=== PATIENT | male | born 1940 | race Caucasian/White ===

== ENCOUNTER 2016-07-28 13:04 | Day surgery (SDC) | payer OTHER ==
[~2016-07-28 13:04] MED LIST: ALBU0.086 INH; ALBU6.7H INH; ATEN1TAB74 PO; ECOT325T PO; FURO1TAB93 PO; NEBUKIT4 XX; NITR0.4S SL; PREG75 PO; REST30CA PO; SPIR50TA21 PO; VITA250L PO
[2016-07-28] MEDS ORDERED: ASPI81CH37 CHEW (13:30)
[2016-07-28] MEDS ORDERED: DILT-60 PO (13:32)
[2016-07-28] MEDS ORDERED: MAGN500T5 PO (13:33)
[2016-07-28] MEDS ORDERED: FURO1TAB62 PO (13:34)
[2016-07-28] MEDS ORDERED: SPIR50TA PO (13:34)
[2016-07-28] MEDS ORDERED: TEMA30CA PO (13:35)
[2016-07-28] MEDS ORDERED: POTA-163 PO (13:36)
[2016-07-28 13:37] VITALS: BP 118/60; PULSE 74; RESP 20; TEMP 98.8; O2SAT 93
[2016-07-28] MEDS ORDERED: LEVEMIR SQ (13:37)
[2016-07-28] MEDS ORDERED: FERR324T8 PO (13:38)
[2016-07-28] MEDS ORDERED: NITR1SUB3 SL (13:39)
[2016-07-28] MEDS ORDERED: ALBU6.7H INH (13:41)
[2016-07-28] MEDS ORDERED: ALBU0.08 NEB (13:42)
--- NOTE | 2016-07-30 09:11 | RADRPT ---
EXAM DATE/TIME: 07/28/2016 13:33 [facility] COMPARISON : No previous studies available for comparison. INDICATIONS : Suspected hepatocellular carcinoma OBJECTIVE: Temperature: 98.8 Heart Rate: 75 Blood Pressure: 118/72 Respiratory: 22 Oximetry: 95 PNEUMONIA VACCINE: HISTORY OF PRESENT ILLNESS: Johan is a pleasant 76-year-old male with history of cirrhosis likely secondary to remote EtOH abuse noted to have a solitary enlarging 2.6 x 2.4 cm mass in anterior segment 8 of the liver, LIRADS 4. In itial and available AFP is not sufficiently elevated. However, family remarks that there may be a ne w AFP level drawn which may be in fact elevated. Unfortunately, this is not available at this time. R ecent LFTs are also not available although more remote labs are within normal limits. 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 Patient is fairly functional and ambulates from a walker primarily due to the recent hip surgery, ECOG 1. He is currently without complaints. PAST MEDICAL HISTORY : 1. Hypercholesterolemia. Hypertension. 3. hepatic cirrosis 4. copd 5. Diabetes mellitus type 2. Cerebrovascular disease. 7. chf PAST SURGICAL HISTORY : 1. Carotid stent. 2. Cholecystectomy. 3. rt hip replacement 4. bilateral cataract surgery SOCIAL HISTORY : No alcohol use. Tobacco; Patient has a ALLERGIES: 1. NKDA MEDICATIONS: [id number] mg q.d. diltiazem 120 mg q.d. magnesium 500 mg q.d. lasix 20 mg b.i.d. spironolatone 50 mg b.i.d. temazepam 30 mg q.h.s. potassium 20 units q.d. levemir 15 units q.h.s. ferrous sulfate 325 mg q.d. albuterol inhaler prn PHYSICAL EXAMINATION: CV: Regular rate and rhythm. Lungs: Clear to auscultation. Abdomen: Soft, nontender nondistended. IMAGING STUDIES: CT examination dated 05/01/2016 and PET/CT examination dated 06/25/2016 were reviewed. These demonstrat e cirrhotic liver with evidence for portal hypertension and is enlarging 2.6 x 2.4 cm segment 8 mass demonstrating early arterial enhancement, early washout, and faint capsule. No evidence for significa nt PET activity or portal vein invasion. No evidence for extrahepatic metastatic disease. ASSESSMENT: 76-year-old male with EtOH cirrhosis and 2.6 x 2.4 cm segment 8 LIRADS 4 mass. 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 He is not a resection candidate due to portal hypertension. Therefore, recommend combination embolization and ablation with curative intent. Ablation will be challenging due to locat ion of the mass but likely possible with advanced techniques. PLAN: VANESA embolization utilizing Ethiodol or ISA beads to also improve targeting of the lesion for subsequ ent technically challenging ablation. TIME SPENT: 30 minutes Patrick Lomeli MD on July 28, 2016 at 17:13 Board Certified Radiologist. This report was verified electronically.
== END 2016-07-28 15:15 | disposition home or self-care (01) ==
LOC: HROP 13:04 → HRIP 13:09 → HROP 15:15
PROVIDERS: ATTEND Internal Medicine Hematology & Oncology
DX: R16.0 Hepatomegaly, not elsewhere classified (principal); K70.30 Alcoholic cirrhosis of liver without ascites; K76.6 Portal hypertension; I11.0 Hypertensive heart disease with heart failure; I50.9 Heart failure, unspecified; E11.9 Type 2 diabetes mellitus without complications; E78.00 Pure hypercholesterolemia, unspecified; J44.9 Chronic obstructive pulmonary disease, unspecified; Z79.4 Long term (current) use of insulin; Z96.641 Presence of right artificial hip joint; Z79.82 Long term (current) use of aspirin; Z95.820 Peripheral vascular angioplasty status with implants and grafts
CPT/HCPCS: 99211; G0463

== ENCOUNTER 2016-07-31 07:10 | Observation (INO) | payer OTHER ==
[~2016-07-31] VITALS: Ht 177.8 cm; Wt 85.5 kg
[2016-07-31] VITALS (10 sets, daily range): BP systolic 102–134; BP diastolic 48–76; PULSE 51–70; RESP 16–22; TEMP 96.8–98.2; O2SAT 92–96
[~2016-07-31 07:10] MED LIST changes: +ALBU0.08 NEB; -ALBU0.086 INH; +ASPI81CH37 CHEW; -ATEN1TAB74 PO; +DILT-60 PO; -ECOT325T PO; +FERR324T8 PO; +FURO1TAB62 PO; -FURO1TAB93 PO; +LEVEMIR SQ; +MAGN500T5 PO; -NEBUKIT4 XX; -NITR0.4S SL; +NITR1SUB3 SL; +POTA-163 PO; -PREG75 PO; -REST30CA PO; +SPIR50TA PO; -SPIR50TA21 PO; +TEMA30CA PO; -VITA250L PO
[2016-07-31] MEDS ORDERED: SODIUM CHLOR 0.9% 1000 ML INJ 1,000 ML IV ONE (08:00)
[2016-07-31 08:22] LABS: AUTOMATED NEUTROPHIL # 5.3 TH/MM3 (1.8-7.7); BASOPHIL # 0.1 TH/MM3 (0-0.2); BASOPHIL % 1.4 % (0.0-2.0); EOSINOPHIL # 0.3 TH/MM3 (0-0.4); EOSINOPHIL % 4.2 % (0.0-4.0); HEMATOCRIT 40.2 % (39.0-51.0); HEMO FLAGS DIFF FINAL; LYMPH % 16.2 % (9.0-44.0); LYMPHOCYTE # 1.3 TH/MM3 (1.0-4.8); MEAN CELL VOLUME 91.9 FL (80.0-100.0); MEAN CORPUSCULAR HEMOGLOBIN 31.4 PG (27.0-34.0); MEAN CORPUSCULAR HGB CONC 34.1 % (32.0-36.0); MONO % 9.6 % (0.0-8.0); NEUT % 68.6 % (16.0-70.0); PLATELET COUNT 101 TH/MM3 (150-450); RED BLOOD COUNT 4.38 MIL/MM3 (4.50-5.90); RED CELL DISTRIBUTION WIDTH 15.1 % (11.6-17.2); WHITE BLOOD COUNT 7.7 TH/MM3 (4.0-11.0)
[2016-07-31 08:32] LABS: APTT (PATIENT) 29.2 SEC (24.3-30.1); INTERNATIONAL NORMALIZED RATIO 1.2 RATIO; PROTHROMBIN TIME - PATIENT 13.5 SEC (9.8-11.6)
[2016-07-31 08:36] LABS: BICARBONATE 25.9 MEQ/L (21.0-32.0); POTASSIUM 4.6 MEQ/L (3.5-5.1)
[2016-07-31 08:38] LABS: INDIRECT BILIRUBIN 1.4 MG/DL (0.0-0.8)
[2016-07-31] MEDS ORDERED: fentaNYL CITRATE 250 MCG/5 ML AMP ONE (13:13)
[2016-07-31] MEDS ORDERED: MIDAZOLAM HCL 5 MG/5 ML VIAL ONE (13:13)
[2016-07-31] MEDS ORDERED: NITROGLYCERIN 1000 MCG/5 ML VIAL OTHER ONE (13:23)
[2016-07-31] MEDS ORDERED: VERAPAMIL HCL 5 MG/2 ML VIAL ONE (13:23)
[2016-07-31] MEDS ORDERED: ETHIODIZED OIL (48% IODINE) 4800 MG/10 ML AMP ONE (14:33)
[2016-07-31] MEDS ORDERED: HEPARIN SODIUM - IV 10,000 UNITS/10 ML VIAL ONE (14:55)
[2016-07-31] MEDS ORDERED: DOXOrubicin HCL 10 MG/5 ML INJ OTHER ONE (15:00)
[2016-07-31] MEDS ORDERED: ONDANSETRON HCL 4 MG/2 ML VIAL IV PRN (15:15)
[2016-07-31] MEDS ORDERED: HYDROmorphone HCL PF 1 MG/ML VIAL IV PUSH PRN (15:15)
--- NOTE | 2016-07-31 15:15 | PD.RAD ---
Post Procedure Progress Note Pre Procedure Diagnosis: (1) HCC (hepatocellular carcinoma) Post Procedure Diagnosis: (1) HCC (hepatocellular carcinoma) Procedure Date: Jul 31, 2016 Supervising Radiologist: Patrick Lomeli Anesthesia: Conscious Sedation Plan of Activity Patient to Unit: Nursing Unit Patient Condition: Good Additional Comments: Lipiodol and VANESA tace super selective embolization of right hepatic mass. Excellent uptake by tumor with patent flow in remaining branches. See PACS Report for procedural detail/treatment Patrick Lomeli MD Jul 31, 2016 15:15
[2016-07-31] MEDS ORDERED: IOHEXOL 350 MG/ML 50 ML BTL (for RAD DIAG) ONE (15:24)
--- NOTE | 2016-07-31 16:29 | HHI.HP ---
[facility] Service [facility] Primary Care Physician Reed Sim M.D. Admission Diagnosis Diagnoses: Chief Complaint: Right liver mass Travel History International Travel<30 Days: No Contact w/Intl Traveler <30 Da: No Traveled to Known Affected Are: No History of Present Illness Patient is a 76-year-old male with known history of cirrhosis likely secondary to alcohol abuse who was noted to have on right hepatic mass enlarging.. Patient with history of hyperlipidemia, hypertension, diabetes type 2. Was admitted under radiology outpatient and underwent superselective embolization of the right hepatic mass. Patient currently is very comfortable denies any pain. Patient admitted for overnight observation. Review of Systems Constitutional: DENIES: Diaphoretic episodes, Fatigue, Fever, Weight gain, Weight loss, Chills, Dizziness, Change in appetite, Night Sweats Endocrine: DENIES: Heat/cold intolerance, Polydipsia, Polyuria, Polyphagia Eyes: DENIES: Blurred vision, Diplopia, Eye inflammation, Eye pain, Vision loss , Photosensitivity, Double Vision Ears, nose, mouth, throat: DENIES: Tinnitus, Hearing loss, Vertigo, Nasal discharge, Oral lesions, Throat pain, Hoarseness, Ear Pain, Running Nose, Epistaxis, Sinus Pain, Toothache, Odynophagia Respiratory: DENIES: Apneas, Cough, Snoring, Wheezing, Hemoptysis, Sputum production, Shortness of breath Cardiovascular: DENIES: Chest pain, Palpitations, Syncope, Dyspnea on Exertion , PND, Lower Extremity Edema, Orthopnea, Claudication Gastrointestinal: DENIES: Abdominal pain, Black stools, Bloody stools, Constipation, Diarrhea, Nausea, Vomiting, Difficulty Swallowing, Anorexia Genitourinary: DENIES: Sexual dysfunction, Urinary frequency, Urinary incontinence, Urgency, Hematuria, Dysuria, Nocturia, Penile Discharge, Testicular Pain, Testicular Swelling Musculoskeletal: COMPLAINS OF: Joint pain, DENIES: Muscle aches, Stiffness, Joint Swelling, Back pain, Neck pain Integumentary: DENIES: Abnormal pigmentation, Nail changes, Pruritus, Rash Hematologic/lymphatic: DENIES: Bruising, Lymphadenopathy Immunologic/allergic: DENIES: Eczema, Urticaria Neurologic: DENIES: Abnormal gait, Headache, Localized weakness, Paresthesias, Seizures, Speech Problems, Tremor, Poor Balance Psychiatric: DENIES: Anxiety, Confusion, Mood changes, Depression, Hallucinations, Agitation, Suicidal Ideation, Homicidal Ideation, Delusions Past Family Social History Past Medical History Hypertension Hypercholesterolemia Liver cirrhosis COPD Diabetes type 2 insulin-requiring History of CAD status post [place] Past Surgical History Right hip surgery Brain tumor surgery Cholecystectomy Carotid stent placement Bilateral cataract surgery Reported Medications Aspirin Diltiazem 120 mg daily Magnesium 500 mg daily Lasix 20 mg twice a day Spironolactone 50 mg twice a Temazepam 30 mg at bedtime Potassium 20 g daily D June 15 units at bedtime Ferrous sulfate 325 mg daily Albuterol inhaler when necessary Allergies: Coded Allergies: Codeine (Unverified Allergy, Severe, THROAT SWELLS, 07/31/16) Family History Noncontributory Social History History of alcohol use quit many years ago Still smokes 5-6 takes a trying to quit Physical Exam Vital Signs Vital Signs Date Time Temp Pulse Resp B/P Pulse Ox O2 Delivery O2 Flow Rate FiO2 07/31/16 08:14 Room Air 07/31/16 07:38 98.2 70 20 127/76 93 Physical Exam GENERAL: This is a well-nourished, well-developed patient, in no apparent distress. SKIN: No rashes, ecchymoses or lesions. Cool and dry. HEAD: Atraumatic. Normocephalic. EYES: Pupils equal round and reactive. Extraocular motions intact. No scleral icterus. No injection or drainage. ENT: Nose without bleeding, Throat without erythema, tonsillar hypertrophy or exudate. Uvula midline. Airway patent. NECK: Trachea midline. No JVD or lymphadenopathy. Supple, nontender, no meningeal signs. CARDIOVASCULAR: Regular rate and rhythm, soft over 6 systolic systolic murmur left sternal border RESPIRATORY: Clear to auscultation. Breath sounds equal bilaterally. No wheezes , rales, or rhonchi. GASTROINTESTINAL: Abdomen soft, non-tender, nondistended. No guarding. MUSCULOSKELETAL: Extremities without clubbing, cyanosis, or edema. No joint tenderness, effusion, or edema noted. No calf tenderness. Negative Homans sign bilaterally. Left wrist with a TR band in place NEUROLOGICAL: Awake and alert. Cranial nerves II through XII intact. Motor and sensory grossly within normal limits. Five out of 5 muscle strength in all muscle groups. Normal speech. Laboratory Laboratory Tests Test 07/31/16 07:55 White Blood Count 7.7 Red Blood Count 4.38 Hemoglobin 13.7 Hematocrit 40.2 Mean Corpuscular Volume 91.9 Mean Corpuscular Hemoglobin 31.4 Mean Corpuscular Hemoglobin 34.1 Concent Red Cell Distribution Width 15.1 Platelet Count 101 Mean Platelet Volume 8.9 Neutrophils (%) (Auto) 68.6 Lymphocytes (%) (Auto) 16.2 Monocytes (%) (Auto) 9.6 Eosinophils (%) (Auto) 4.2 Basophils (%) (Auto) 1.4 Neutrophils # (Auto) 5.3 Lymphocytes # (Auto) 1.3 Monocytes # (Auto) 0.7 Eosinophils # (Auto) 0.3 Basophils # (Auto) 0.1 CBC Comment DIFF FINAL Differential Comment Prothrombin Time 13.5 Prothromb Time International 1.2 Ratio Activated Partial 29.2 Thromboplast Time Sodium Level 136 Potassium Level 4.6 Chloride Level 103 Carbon Dioxide Level 25.9 Anion Gap 7 Blood Urea Nitrogen 30 Creatinine 0.99 Estimat Glomerular Filtration 73 Rate Random Glucose 102 Calcium Level 8.9 Total Bilirubin 2.0 Direct Bilirubin 0.6 Indirect Bilirubin 1.4 Aspartate Amino Transf 55 (AST/SGOT) Alanine Aminotransferase 48 (ALT/SGPT) Alkaline Phosphatase 111 Total Protein 7.6 Albumin 3.1 Result Diagram: 07/31/16 0755 07/31/16 0755 Assessment and Plan Assessment and Plan 76-year-old male with liver mass status post chemoembolization of the right hepatic mass with implantation of chemotherapy peaks. Monitor Clear liquids until midnight. Zofran when necessary for nausea History of hypertension, CAD status post [place], history of diabetes type 2 insulin- requiring Stable. Continue home meds. Discharge planning in a.m. Discussed Condition With Patient Lakesha Antonio MD Jul 31, 2016 16:29
[2016-07-31] MEDS ORDERED: TEMAZEPAM 15 MG CAP PO PRN (16:30)
[2016-07-31] MEDS ORDERED: ALBUTEROL SULFATE 90 MCG/ACT HFA 18 GM INHALER INH PRN (16:30)
[2016-07-31] MEDS ORDERED: NITROGLYCERIN 0.4 MG SL 25 TABS/BTL SL PRN (16:30)
[2016-07-31] MEDS: SPIRONOLACTONE 50 MG TAB PO SCH (18:00)
[2016-07-31] MEDS ORDERED: INSULIN DETEMIR 100 UNITS/ML VIAL SQ SCH (21:00)
[2016-07-31] MEDS: FUROSEMIDE 20 MG TAB PO SCH (21:36)
[2016-07-31] MEDS: SODIUM CHLOR 0.9% 1000 ML INJ 1,000 ML IV SCH (21:36)
[2016-07-31] MEDS: RESP: ALBUTEROL 2.5 MG/3 ML NEB (SCH) NEB (23:36)
[2016-08-01] VITALS: BP 106/58; PULSE 65; RESP 16; TEMP 97; O2SAT 95
[2016-08-01] MEDS: SODIUM CHLOR 0.9% 1000 ML INJ 1,000 ML IV SCH ×2 (01:02→11:15)
[2016-08-01 04:00] VITALS: BP 115/60; PULSE 73; RESP 16; TEMP 97.6; O2SAT 95
[2016-08-01] MEDS: RESP: ALBUTEROL 2.5 MG/3 ML NEB (SCH) NEB ×3 (04:49→12:14)
--- NOTE | 2016-08-01 07:39 | RADRPT ---
EXAM DATE/TIME: 07/31/2016 13:18 [facility] COMPARISON: US GUIDED VASCULAR ACCESS, LEFT, July 31, 2016, 15:22. INDICATIONS : 76-year-old male with history of EtOH cirrhosis and enlarging LI-RADS 4 mass in segment 4A of the juan miguel er. AFP > 500. ECOG 1. BCLC A. Na-MELD 14. MEDICAL HISTORY : 1. Hepatic cirrhosis 2. DM 3. stroke 4. CHF 5. basal cell carcinoma 6. sleep apnea, CPAP at night SURGICAL HISTORY : 1. Cholecystectomy 2. Right hip replacement 3. Coromnary stent 4. Basal cell carcinoma resection ENCOUNTER: Initial ACUITY: 1 month PAIN SCORE: 0/10 LOCATION: N/A FLUORO TIME: 12.1 minutes IMAGE SERIES: 10 ACCESS SITE: Left Radial artery SEDATION TIME: 75 minutes CONTRAST: 1.) 55 cc Omnipaque (iohexol) 350 MEDICATION(S): 1.) 3 mg midazolam (Versed) IV 2.) 150 mcg fentanyl (Sublimaze) IV 3.) 3,000 units Heparin IV 4.) 400 mcg Nitroglycerin IV 5.) 4 mg Verapamil IV PROCEDURE : 1. Ultrasound-guided puncture of the access site. 2. Conscious sedation with continuous EKG and oximetry monitoring. 3. Selective catheter placement in the common hepatic artery with selective angiography 4. Selective catheter placement in the right hepatic artery with selective angiography 5. Subselective catheter placement and segment 4 branch of the right hepatic artery with subselectiv e angiography 6. superselective embolization of distal segments 4 hepatic artery with Lipiodol and 100 um Adriamyci n Oncozene beads The risks, benefits and alternatives to the procedure were explained and verbal and written consent w as obtained. The site was prepped in sterile fashion. Full sterile technique was used, including ca p, mask, sterile gloves and gown and a large sterile sheet. Hand hygiene and 2% chlorhexidine and/or betadine/alcohol prep was utilized per protocol for cutaneous antisepsis. The skin and subcutaneous tissues were infiltrated with local anesthetic solution. Patient passed Barbeau test prior to the procedure. Ultrasound evaluation of the left radial artery d emonstrated the artery to be patent. Single image was obtained and placed in PACS archive. Micropunct ure needle was advanced into the left radial artery under careful ultrasound guidance. This was subse quently exchanged for a slim 6 Thai sheaths. A 4 Thai Sam type catheter was then advanced i nto the celiac artery and subsequently secured in the common hepatic artery. Angiography was performe d demonstrating standard celiac anatomy with faintly enhancing mass near the dome of the liver. Francoise ter was therefore advanced into the right hepatic artery and angiography was performed. This confirme d enhancing mass near the medial dome of the liver corresponding to the segment 4A mass noted on CT. A renegade high flow microcatheter and Fathom 14 wire were then advanced into the segment 4 branch an d angiography was performed. This confirmed the findings. Mass was subsequently embolized with one mL of lipiodol (to allow for ablation targeting) and approximately 1/3 of 10 mL solution containing 2 m L 100um Oncozene loaded with 75 ml Adriamycin. Followup angiography demonstrated stasis of flow in th e embolized branch only with persistent fourth flow noted in the remaining segments. Margin catheters were then removed. Left radial artery sheath was then removed and hemostasis obtained with a radial compression device. Conscious sedation was performed with the prescribed dosages and duration as above in the presence of an independent trained radiology nurse to assist in the monitoring of the patient. EKG and oximetry remained stable throughout the procedure. CONCLUSION: 1. Hepatic angiography confirms enhancing mass in the dome of the liver corresponding to segment 4A m ass noted on CT. 2. Technically successful superselective embolization utilizing lipiodol (for ablation targeting) and 100 m Oncozene beads containing 75 mg of Adriamycin. Patrick Lomeli MD on August 01, 2016 at 7:21 Board Certified Radiologist. This report was verified electronically.
[2016-08-01 07:44] VITALS: O2SAT 94
[2016-08-01 08:00] VITALS: BP 120/58; PULSE 80; RESP 18; TEMP 98; O2SAT 95
[2016-08-01] MEDS ORDERED: DILTIAZEM-CD 180 MG CAP ER PO SCH (09:00)
[2016-08-01] MEDS ORDERED: FERROUS FUMARATE 325 MG TAB (106 MG ELEMENTAL IRON) PO SCH (09:00)
[2016-08-01] MEDS ORDERED: POTASSIUM CHLORIDE 20 MEQ CONTROLLED RELEASE TAB PO SCH (09:00)
[2016-08-01] MEDS ORDERED: NON-FORMULARY DRUG (Magnesium Gluconate 500 MG) PO SCH (09:00)
[2016-08-01] MEDS: SPIRONOLACTONE 50 MG TAB PO SCH (09:44)
[2016-08-01] MEDS: FUROSEMIDE 20 MG TAB PO SCH (09:44)
--- NOTE | 2016-08-01 11:06 | HHI.PR ---
Subjective Remarks no complains Objective Vitals Vital Signs Date Time Temp Pulse Resp B/P Pulse Ox O2 Delivery O2 Flow Rate FiO2 08/01/16 08:00 98.0 80 18 120/58 95 08/01/16 07:44 94 Nasal Cannula 2.00 08/01/16 04:00 97.6 73 16 115/60 95 08/01/16 00:00 97.0 65 16 106/58 95 07/31/16 23:36 Nasal Cannula 2.00 07/31/16 23:00 Room Air 07/31/16 20:00 97.1 69 16 121/59 95 07/31/16 18:20 96.8 64 18 134/61 96 07/31/16 17:30 64 20 127/60 93 07/31/16 17:00 60 18 102/48 92 07/31/16 16:30 60 22 130/64 94 07/31/16 16:00 61 20 122/63 94 07/31/16 15:45 65 18 115/55 94 07/31/16 15:30 51 18 112/52 92 07/31/16 15:15 97.6 58 22 119/52 92 I/O 07/31/16 07/31/16 07/31/16 08/01/16 08/01/16 08/01/16 07:00 15:00 23:00 07:00 15:00 23:00 Output Total 300 ml 500 ml 525 ml Balance -300 ml -500 ml -525 ml Output Urine Total 300 ml 500 ml 525 ml Result Diagram: 07/31/16 0755 07/31/16 0755 Imaging Last Impressions Embolization, Transcatheter 07/31/16 1523 Signed Impressions: Service Date/Time: July 13:18 - CONCLUSION: 1. Hepatic angiography confirms enhancing mass in the dome of the liver corresponding to segment 4A mass noted on CT. 2. Technically successful superselective embolization utilizing lipiodol (for ablation targeting) and 100 m Oncozene beads containing 75 mg of Adriamycin. Patrick Lomeli MD Objective Remarks NAD anicteric lungs clear regular rhtyhm abdomen soft, nontender left wrist- no heamtoma extrmeities no edema neuro exam- normal Procedures embolization of mass A/P Assessment and Plan 76-year-old male with liver mass status post chemoembolization of the right hepatic mass with implantation of chemotherapy beads - stable overnight History of hypertension, CAD status post [place], history of diabetes type 2 insulin- requiring Stable. Continue home meds. dc today OP ff up with IR next week Diet regular activity weight bearing as tolerated Meds- continue home meds Lakesha Antonio MD Aug 01, 2016 11:06
--- NOTE | 2016-08-01 12:31 | HHI.PR ---
Subjective Remarks No complaints Objective Vital Signs Date Time Temp Pulse Resp B/P Pulse Ox O2 Delivery O2 Flow Rate FiO2 08/01/16 08:00 98.0 80 18 120/58 95 08/01/16 07:44 94 Nasal Cannula 2.00 08/01/16 04:00 97.6 73 16 115/60 95 08/01/16 00:00 97.0 65 16 106/58 95 07/31/16 23:36 Nasal Cannula 2.00 07/31/16 23:00 Room Air 07/31/16 20:00 97.1 69 16 121/59 95 07/31/16 18:20 96.8 64 18 134/61 96 07/31/16 17:30 64 20 127/60 93 07/31/16 17:00 60 18 102/48 92 07/31/16 16:30 60 22 130/64 94 07/31/16 16:00 61 20 122/63 94 07/31/16 15:45 65 18 115/55 94 07/31/16 15:30 51 18 112/52 92 07/31/16 15:15 97.6 58 22 119/52 92 I/O 07/31/16 07/31/16 07/31/16 08/01/16 08/01/16 08/01/16 07:00 15:00 23:00 07:00 15:00 23:00 Output Total 300 ml 500 ml 525 ml Balance -300 ml -500 ml -525 ml Output Urine Total 300 ml 500 ml 525 ml Result Diagram: 07/31/16 0755 07/31/16 0755 Objective Remarks In NAD. Abdomen soft, NTND. Left radial site intact and dry. Assessment and Plan Problem List: (1) HCC (hepatocellular carcinoma) Status: Acute Plan: POD #! s/p superselective VANESA TACE embolization of segment IV right hepatic artery. Doing very well and without complaints. OK to D/C from IR standpoint. F/U next week with tentative plan for ablation to follow. Patrick Lomeli MD Aug 01, 2016 12:31
== END 2016-08-01 14:55 | disposition home or self-care (01) ==
LOC: HROP 07:10 → HRIP 07:11 → HOCB 08:15 → HROP 18:16
PROVIDERS: ADMIT Internal Medicine Hematology & Oncology; ATTEND Internal Medicine Hematology & Oncology
DX: C22.0 Liver cell carcinoma (principal); K74.60 Unspecified cirrhosis of liver; I11.0 Hypertensive heart disease with heart failure; I50.9 Heart failure, unspecified; I25.10 Atherosclerotic heart disease of native coronary artery without angina pectoris; E11.9 Type 2 diabetes mellitus without complications; E78.5 Hyperlipidemia, unspecified; J44.9 Chronic obstructive pulmonary disease, unspecified; I25.2 Old myocardial infarction; F17.200 Nicotine dependence, unspecified, uncomplicated; Z95.5 Presence of coronary angioplasty implant and graft; Z79.82 Long term (current) use of aspirin; Z88.5 Allergy status to narcotic agent; Z79.4 Long term (current) use of insulin; Z85.828 Personal history of other malignant neoplasm of skin; Z86.73 Personal history of transient ischemic attack (TIA), and cerebral infarction without residual deficits; Z96.641 Presence of right artificial hip joint
CPT/HCPCS: 36247; 37243; 76937; 80048; 80076; 82948; 85025; 85610; 85730; 94640; 94664; 96420; 99152; 99153; C1769; C1884; C1887; G0378; J1644; J2250; J3010; J7030; J7613; J9000; Q9967

== ENCOUNTER 2016-08-07 13:47 | Day surgery (SDC) | payer OTHER ==
[2016-08-07 14:10] VITALS: BP 116/63; PULSE 76; RESP 18; TEMP 98.8; O2SAT 94
--- NOTE | 2016-08-07 15:01 | RADRPT ---
EXAM DATE/TIME: 08/07/2016 00:00 [facility] COMPARISON : INDICATIONS : F/U hepatic chemo embolization OBJECTIVE: Temperature: 98.8 Heart Rate: 76 Blood Pressure: 116/63 Respiratory: 18 Oximetry: 94 PNEUMONIA VACCINE: NO HISTORY OF PRESENT ILLNESS: Johan is a very pleasant 76-year-old male with history of 2.6 cm segment 4A mass (BCLC A, MELD 14, EC OG 1) status post superselective chemoembolization last week. He had a very unremarkable course follo wing chemoembolization and was essentially asymptomatic during hospital admission. He reports minimal right upper quadrant pain immediately following discharge which has since resolved. He is currently without complaints. PAST MEDICAL HISTORY : 1. Stroke. 2. Myocardial infarction. 3. Hypercholesterolemia. 4. Hypertension. 5. Sleep apnea. 6. Chronic obstructive pulmonary disease. 7. Osteoarthritis. 8. Diabetes mellitus type 2. PAST SURGICAL HISTORY : 1. Coronary artery stent. x2 2. Cholecystectomy. SOCIAL HISTORY : ALLERGIES: 1. codeine PHYSICAL EXAMINATION: Left radial access site is unremarkable. Abdomen is soft and nontender. PULSES: Left Radial: 2+ ASSESSMENT: 76-year-old male with 2.6 cm segment 4A hepatocellular carcinoma status post VANESA chemoembolization. Mariano weber has tolerated locoregional therapy very well. Plan remains for curative intent thermal ablation in the next 2 weeks. We will reevaluate liver enzymes in approximately one week prior to proceeding with ablation. PLAN: Microwave ablation in approximately 2 weeks. TIME SPENT: 20 minutes. Patrick Lomeli MD on August 07, 2016 at 14:48 Board Certified Radiologist. This report was verified electronically.
== END 2016-08-07 15:08 | disposition home or self-care (01) ==
LOC: HROP 13:47 → HRIP 13:51 → HROP 15:08
PROVIDERS: ATTEND Radiology Diagnostic Radiology
DX: C22.0 Liver cell carcinoma (principal); E78.00 Pure hypercholesterolemia, unspecified; I10 Essential (primary) hypertension; J44.9 Chronic obstructive pulmonary disease, unspecified; E11.9 Type 2 diabetes mellitus without complications; G47.30 Sleep apnea, unspecified; I25.2 Old myocardial infarction; Z86.73 Personal history of transient ischemic attack (TIA), and cerebral infarction without residual deficits

== ENCOUNTER 2016-08-26 06:47 | Observation (INO) | payer OTHER ==
[~2016-08-26] VITALS: Ht 177.8 cm; Wt 86.0 kg
[2016-08-26 07:05] VITALS: BP 140/68; PULSE 64; RESP 20; TEMP 98.1; O2SAT 92
[2016-08-26] MEDS ORDERED: INSULIN HUMAN REGULAR 1,000 UNITS/10 ML VIAL SQ PRN (07:15)
[2016-08-26] MEDS ORDERED: ceFAZolin 2 GM PREMIX 50 ML IV SCH (07:15)
[2016-08-26] MEDS ORDERED: LACTATED RINGER'S 1000 ML IV PRN (07:15)
[2016-08-26] MEDS: SODIUM CHLOR 0.9% 1000 ML INJ 1,000 ML IV SCH (07:15)
[2016-08-26] MEDS ORDERED: POVIDONE IODINE 5% (ANTISEPSIS KIT) 4 APPLICATIONS EACH NARE PRN (07:15)
[2016-08-26] MEDS ORDERED: SODIUM CHLORID 0.9% 500 ML IV PRN (07:15)
[2016-08-26] MEDS ORDERED: CHLORHEXIDINE GLUCONATE 2 % 1 PACK (2 CLOTHS) TOPICAL PRN (07:15)
[2016-08-26] MEDS ORDERED: METOPROLOL TARTRATE 25 MG TAB PO PRN (07:15)
[2016-08-26] MEDS ORDERED: VENL37.54 PO (07:27)
[2016-08-26 07:38] LABS: AUTOMATED NEUTROPHIL # 4.9 TH/MM3 (1.8-7.7); BASOPHIL # 0.1 TH/MM3 (0-0.2); BASOPHIL % 1.5 % (0.0-2.0); EOSINOPHIL # 0.5 TH/MM3 (0-0.4); EOSINOPHIL % 6.9 % (0.0-4.0); HEMATOCRIT 41.2 % (39.0-51.0); HEMO FLAGS DIFF FINAL; LYMPH % 18.5 % (9.0-44.0); LYMPHOCYTE # 1.4 TH/MM3 (1.0-4.8); MEAN CELL VOLUME 92.1 FL (80.0-100.0); MEAN CORPUSCULAR HEMOGLOBIN 31.8 PG (27.0-34.0); MEAN CORPUSCULAR HGB CONC 34.5 % (32.0-36.0); MONO % 10.2 % (0.0-8.0); NEUT % 62.9 % (16.0-70.0); PLATELET COUNT 117 TH/MM3 (150-450); RED BLOOD COUNT 4.47 MIL/MM3 (4.50-5.90); RED CELL DISTRIBUTION WIDTH 15.6 % (11.6-17.2); WHITE BLOOD COUNT 7.8 TH/MM3 (4.0-11.0)
[2016-08-26 07:47] LABS: APTT (PATIENT) 30.6 SEC (24.3-30.1); INTERNATIONAL NORMALIZED RATIO 1.3 RATIO
[2016-08-26 08:36] LABS: INDIRECT BILIRUBIN 1.4 MG/DL (0.0-0.8); TOTAL BILIRUBIN ADULT 2.1 MG/DL (0.2-1.0)
--- NOTE | 2016-08-26 09:58 | EKG ---
Date Performed: 08/26/2016 Time Performed: 07:15:13 PTAGE: 76 years EKG: Normal Sinus rhythm PREVIOUS TRACING : 07/10/2013 00.59 No change from the prior tracing. DOCTOR: Malcolm Rowe Interpretating Date/Time 08/26/2016 09:52:16
[2016-08-26] MEDS ORDERED: LIDOCAINE 1%/EPINEPHrine 1:100,000 SOLN 20 ML VIAL ONE (10:54)
[2016-08-26] MEDS ORDERED: fentaNYL CITRATE 250 MCG/5 ML AMP ONE (12:35)
[2016-08-26] MEDS ORDERED: SUGAMMADEX SODIUM 200 MG/2 ML VIAL IV PUSH ONE ×2 (12:36)
--- NOTE | 2016-08-26 12:58 | PD.RAD ---
Post CT Procedure Prog Note Pre Procedure Diagnosis: (1) HCC (hepatocellular carcinoma) Post Procedure Diagnosis: (1) HCC (hepatocellular carcinoma) Procedure Date: Aug 26, 2016 Supervising Radiologist: Patrick Lomeli Anesthesia: Analgesia Plan of Activity Patient to Unit: ROPU Patient Condition: Good Additional Comments: good result following microwave ablation. good zone. no hematoma. See PACS Report for procedural detail/treatment Patrick Lomeli MD Aug 26, 2016 12:58
[2016-08-26] MEDS ORDERED: HYDROmorphone HCL PF 1 MG/ML VIAL IV PUSH PRN (13:00)
[2016-08-26 14:00] VITALS: BP 140/66; PULSE 65; RESP 17; TEMP 96; O2SAT 95
--- NOTE | 2016-08-26 15:01 | HHI.HP ---
[facility] [place] [facility] Primary Care Physician Reed Sim M.D. Admission Diagnosis Diagnoses: (1) HCC (hepatocellular carcinoma) Diagnosis: Principal Chief Complaint: Observation post procedure microwave ablation of tumor Travel History International Travel<30 Days: No Contact w/Intl Traveler <30 Da: No Traveled to Known Affected Are: No History of Present Illness Patient is a very pleasant 76-year-old male with known history of liver cirrhosis alcohol use , history of hepatocellular carcinoma. She has history of hypertension diabetes type 2. Patient came in today and underwent microwave ablation of tumor. With good results tolerated procedure well no hematoma postprocedure. Patient admitted overnight for observation. Review of Systems Constitutional: DENIES: Fever, Weight loss, Chills, Change in appetite Eyes: DENIES: Blurred vision, Double Vision Ears, nose, mouth, throat: DENIES: Tinnitus, Ear Pain, Epistaxis, Odynophagia Respiratory: DENIES: Cough, Hemoptysis, Sputum production, Shortness of breath Cardiovascular: DENIES: Chest pain, Palpitations, Dyspnea on Exertion, Lower Extremity Edema, Orthopnea Gastrointestinal: DENIES: Black stools, Bloody stools, Difficulty Swallowing, Anorexia Genitourinary: DENIES: Urgency, Hematuria, Penile Discharge Musculoskeletal: DENIES: Joint pain, Stiffness Integumentary: DENIES: Pruritus Hematologic/lymphatic: DENIES: Bruising Immunologic/allergic: DENIES: Urticaria Neurologic: DENIES: Headache, Speech Problems, Tremor Psychiatric: DENIES: Suicidal Ideation, Homicidal Ideation Past Family Social History Past Medical History Hypertension Hyperlipidemia Liver cirrhosis COPD Diabetes type 2 insulin-requiring History of CAD status post MS Hepatocellular carcinoma Past Surgical History Right hip surgery Brain tumor surgery Cholecystectomy Carotid stent placement Bilateral cataract surgery Reported Medications Reported medications Cardizem 120 mg CD daily magnesium 600 mg daily Lasix 20 mg twice a day Spironolactone 50 mg twice a Temazepam 30 mg at bedtime Potassium 20 g the milliequivalent daily Levemer 15 units at bedtime Ferrous sulfate 325 mg daily Albuterol inhaler when necessary Allergies: Coded Allergies: Codeine (Unverified Allergy, Severe, THROAT SWELLS, 08/26/16) Family History Noncontributory Social History History of alcohol use quit many years ago Still occasionally smokes 5-6 takes a trying to quit Physical Exam Vital Signs Vital Signs Date Time Temp Pulse Resp B/P Pulse Ox O2 Delivery O2 Flow Rate FiO2 08/26/16 13:51 98.0 6 20 135/63 95 Room Air 08/26/16 13:45 98.0 6 20 135/63 95 Room Air 08/26/16 13:30 63 20 129/60 100 Room Air 08/26/16 13:21 98.0 64 20 142/63 99 Nasal Cannula 2 08/26/16 07:14 Room Air 08/26/16 07:05 98.1 64 20 140/68 92 Physical Exam GENERAL: This is a well-nourished, well-developed patient, in no apparent distress. SKIN: No rashes, ecchymoses or lesions. Cool and dry. HEAD: Atraumatic. Normocephalic. No temporal or scalp tenderness. EYES: Pupils equal round and reactive. Extraocular motions intact. No scleral icterus. No injection or drainage. ENT: Nose without bleeding, purulent drainage or septal hematoma. Throat without erythema, tonsillar hypertrophy or exudate. Uvula midline. Airway patent. NECK: Trachea midline. No JVD or lymphadenopathy. Supple, nontender, no meningeal signs. CARDIOVASCULAR: Regular rate and rhythm without murmurs, gallops, or rubs. RESPIRATORY: Clear to auscultation. Breath sounds equal bilaterally. No wheezes , rales, or rhonchi. GASTROINTESTINAL: Abdomen soft, non-tender, nondistended.. No guarding. MUSCULOSKELETAL: Extremities without clubbing, cyanosis, or edema. No joint tenderness, effusion, or edema noted. No calf tenderness. Negative Homans sign bilaterally. NEUROLOGICAL: Awake and alert. Cranial nerves II through XII intact. Motor and sensory grossly within normal limits. Five out of 5 muscle strength in all muscle groups. Normal speech. Laboratory Laboratory Tests Test 08/26/16 08/26/16 07:14 07:59 White Blood Count 7.8 Red Blood Count 4.47 Hemoglobin 14.2 Hematocrit 41.2 Mean Corpuscular Volume 92.1 Mean Corpuscular Hemoglobin 31.8 Mean Corpuscular Hemoglobin 34.5 Concent Red Cell Distribution Width 15.6 Platelet Count 117 Mean Platelet Volume 8.2 Neutrophils (%) (Auto) 62.9 Lymphocytes (%) (Auto) 18.5 Monocytes (%) (Auto) 10.2 Eosinophils (%) (Auto) 6.9 Basophils (%) (Auto) 1.5 Neutrophils # (Auto) 4.9 Lymphocytes # (Auto) 1.4 Monocytes # (Auto) 0.8 Eosinophils # (Auto) 0.5 Basophils # (Auto) 0.1 CBC Comment DIFF FINAL Differential Comment Prothrombin Time 14.0 Prothromb Time International 1.3 Ratio Activated Partial 30.6 Thromboplast Time Total Bilirubin 2.1 Direct Bilirubin 0.7 Indirect Bilirubin 1.4 Aspartate Amino Transf 69 (AST/SGOT) Alanine Aminotransferase 62 (ALT/SGPT) Alkaline Phosphatase 116 Total Protein 7.2 Albumin 2.8 Result Diagram: 08/26/16 0714 Assessment and Plan Assessment and Plan 76-year-old male admitted for status post microwave ablation of hepatocellular carcinoma History of liver cirrhosis. Continue meds History of COPD in remission. continue inhaler History of diabetes type 2 insulin-requiring. Good hypoglycemic awareness History of CAD status post MS. Stable Stable overnight possible discharge in a.m. Discussed Condition With Patient Lakesha Antonio MD Aug 26, 2016 15:01
[2016-08-26] MEDS ORDERED: NITROGLYCERIN 0.4 MG SL 25 TABS/BTL SL PRN (15:15)
[2016-08-26] MEDS ORDERED: TEMAZEPAM 15 MG CAP PO PRN (15:15)
[2016-08-26 16:00] VITALS: BP 140/66; PULSE 65; RESP 17; TEMP 96; O2SAT 95
[2016-08-26] MEDS: SPIRONOLACTONE 50 MG TAB PO SCH (17:42)
[2016-08-26 20:00] VITALS: BP 116/57; PULSE 70; RESP 21; TEMP 97.3; O2SAT 93
[2016-08-26] MEDS: FUROSEMIDE 20 MG TAB PO SCH (21:12)
[2016-08-26] MEDS: RESP: ALBUTEROL 2.5 MG/3 ML NEB (SCH) NEB ×2 (21:31→23:36)
[2016-08-27] VITALS: BP 120/59; PULSE 79; RESP 20; TEMP 96.9; O2SAT 94
[2016-08-27] MEDS: RESP: ALBUTEROL 2.5 MG/3 ML NEB (SCH) NEB ×3 (02:59→11:00)
[2016-08-27] MEDS: SODIUM CHLOR 0.9% 1000 ML INJ 1,000 ML IV SCH (03:36)
--- NOTE | 2016-08-27 07:43 | RADRPT ---
EXAM DATE/TIME: 08/26/2016 11:35 [facility] COMPARISON: ANGIOGRAM, HEPATIC ARTERY, July 31, 2016, 13:18. A INDICATIONS : 76-year-old male with history of cirrhosis with 2.6 cm anterior segment 8 mass. Patient is status pos t VANESA embolization utilizing Ethiodol and now presents for curative intent ablation. Anesthesia and pain control was provided by the Anesthesia department. Prophylactic antibiotics were administered with appropriate pre-procedure timing. DEVICE(S): MEDICAL HISTORY : Cardiovascular disease. Hypertension. SURGICAL HISTORY : Cholecystectomy. ENCOUNTER: Initial ACUITY: 1 day PAIN SCORE: 0/10 LOCATION: Right flank PROCEDURE : 1. Challenging CT guided microwave ablation of mass in anterior segment 8 near the dome The risks, benefits and alternatives to the procedure were explained and verbal and written consent w as obtained. Using automated exposure control and adjustment of the mA and/or kV according to patien t size, radiation dose was kept as low as reasonably achievable to obtain optimal diagnostic quality images. The site was prepped in sterile fashion. Full sterile technique was used, including cap, ma sk, sterile gloves and gown and a large sterile sheet. Hand hygiene and 2% chlorhexidine and/or beta dine/alcohol prep was utilized per protocol for cutaneous antisepsis. The skin and subcutaneous tiss ues were infiltrated with local anesthetic solution. DICOM format image data is available electronic ally for review and comparison. Patient was placed supine on CT table. The mass in segment 8 at the dome was localized. Skin overlyin g the mass was prepped and draped in usual sterile fashion. An 18 gauge Upton needle was advanced u tilizing a trans-costochondral approach into the pericardial recess at approximately 150 cc of steril e saline was slowly injected to allow for sufficient hydrodissection. Next, a [place] microw ave ablation probe was advanced into the mass with careful CT guidance. Mass was subsequently ablated at 45 W for 7 minutes and progression of ablation zone monitored with CT scans. Next, the probe was repositioned more cephalad in the mass and an additional ablation was performed at 45 W for 3 minutes . Was then removed. Small dressing was applied to the puncture site. Postprocedural CT exam demonstrated no evidence of hematoma, pneumothorax, or other complication. Pat ient tolerated the procedure well. CONCLUSION: 1. Challenging but technically successful microwave ablation of 2.6 cm mass in segment 8 of the liver at the dome. Plan: Patient will be admitted for overnight observation with followup imaging in approximately 8 wee ks. Patrick Lomeli MD on August 27, 2016 at 7:30 Board Certified Radiologist. This report was verified electronically.
[2016-08-27 08:00] VITALS: BP 144/63; PULSE 80; RESP 17; TEMP 97.4; O2SAT 94
[2016-08-27] MEDS: SPIRONOLACTONE 50 MG TAB PO SCH (08:06)
[2016-08-27] MEDS: FUROSEMIDE 20 MG TAB PO SCH (08:07)
[2016-08-27] MEDS ORDERED: DILTIAZEM-CD 180 MG CAP ER PO SCH (09:00)
[2016-08-27] MEDS ORDERED: VENLAFAXINE HCL XR 37.5 MG CAP PO SCH (09:00)
[2016-08-27] MEDS ORDERED: POTASSIUM CHLORIDE 20 MEQ CONTROLLED RELEASE TAB PO SCH (09:00)
[2016-08-27] MEDS ORDERED: FERROUS FUMARATE 325 MG TAB (106 MG ELEMENTAL IRON) PO SCH (09:00)
[2016-08-27] MEDS ORDERED: NON-FORMULARY DRUG (Magnesium Gluconate 500 MG) PO SCH (09:00)
--- NOTE | 2016-08-27 10:20 | HHI.PR ---
Subjective Remarks no abdominal pain complains tolerated po well Objective Vitals Vital Signs Date Time Temp Pulse Resp B/P Pulse Ox O2 Delivery O2 Flow Rate FiO2 08/27/16 08:00 97.4 80 17 144/63 94 08/27/16 00:00 96.9 79 20 120/59 94 08/26/16 20:00 97.3 70 21 116/57 93 08/26/16 16:00 96.0 65 17 140/66 95 08/26/16 14:00 96.0 65 17 140/66 95 08/26/16 13:51 98.0 6 20 135/63 95 Room Air 08/26/16 13:45 98.0 6 20 135/63 95 Room Air 08/26/16 13:30 63 20 129/60 100 Room Air 08/26/16 13:21 98.0 64 20 142/63 99 Nasal Cannula 2 I/O 08/26/16 08/26/16 08/26/16 08/27/16 08/27/16 08/27/16 07:00 15:00 23:00 07:00 15:00 23:00 Intake Total 730 ml 240 ml 240 ml Output Total 600 ml 450 ml Balance 730 ml -360 ml -210 ml Intake Oral 240 ml 240 ml IV Total 30 ml 0 ml Other 700 ml Output Urine Total 600 ml 450 ml Result Diagram: 08/26/16713 Imaging Last Impressions Guidance Needle Placement CT 08/26/1644 Signed Impressions: Service Date/Time: Friday, August 26, 2016 11:35 - CONCLUSION: 1. Challenging but technically successful microwave ablation of 2.6 cm mass in segment 8 of the liver at the dome. Plan: Patient will be admitted for overnight observation with followup imaging in approximately 8 weeks. Patrick Lomeli MD Objective Remarks anicteric lungs clear regularr hythm abdomen soft, nontender, good bowel sounds, no guarding extremities no edema neuroe xam- unremarkable Procedures 08/26- radioablation of hepatoceelular mass A/P Problem List: (1) HCC (hepatocellular carcinoma) ICD Code: C22.0 Status: Acute Assessment and Plan 76-year-old male admitted for status post microwave ablation of hepatocellular carcinoma History of liver cirrhosis. Continue meds History of COPD in remission. continue inhaler History of diabetes type 2 insulin-requiring. Good hypoglycemic awareness History of CAD status post OH. Stable - d/w patient and Dr. Catherine- hold ASA for 72 hours DC home today OP ff up with IR- Dr. Catherine Diet as tolerated- ADA ACtivity as tolerated. FF up with IR- in [address] Lakesha Antonio MD Aug 27, 2016 10:20
[2016-08-27 12:00] VITALS: BP 110/56; PULSE 74; RESP 17; TEMP 98.5; O2SAT 95
== END 2016-08-27 12:37 | disposition home or self-care (01) ==
LOC: HRIP 06:47 → HROP 06:47 → N07A 14:19
PROVIDERS: ADMIT Internal Medicine; ATTEND Internal Medicine
DX: C22.0 Liver cell carcinoma (principal); I10 Essential (primary) hypertension; E11.9 Type 2 diabetes mellitus without complications; E78.5 Hyperlipidemia, unspecified; J44.9 Chronic obstructive pulmonary disease, unspecified; I25.10 Atherosclerotic heart disease of native coronary artery without angina pectoris; I25.2 Old myocardial infarction; Z79.4 Long term (current) use of insulin; Z79.899 Other long term (current) drug therapy; K74.60 Unspecified cirrhosis of liver
CPT/HCPCS: 77013; 80076; 82948; 85025; 85610; 85730; 93005; 94640; 94664; G0378; J3010; J7120; J7613

== ENCOUNTER 2016-09-03 14:27 | Day surgery (SDC) | payer OTHER ==
[~2016-09-03 14:27] MED LIST changes: -ALBU6.7H INH; -ASPI81CH37 CHEW; +VENL37.54 PO
[2016-09-03 15:00] VITALS: BP 127/67; PULSE 76; RESP 20; TEMP 98.8; O2SAT 97
--- NOTE | 2016-09-03 17:19 | RADRPT ---
EXAM DATE/TIME: 09/03/2016 15:19 [facility] COMPARISON : INDICATIONS : Follow up micro ablation OBJECTIVE: Temperature: 98.8 Heart Rate: 76 Blood Pressure: 127/67 Respiratory: 20 Oximetry: 97 PNEUMONIA VACCINE: YES HISTORY OF PRESENT ILLNESS: Johan is a very pleasant 76-year-old male with history of 2.6 cm segment 4A mass (BCLC A, MELD 14, EC OG 1) status post superselective chemoembolization and microwave ablation last week. He had a very un remarkable course following both procedures and was essentially asymptomatic during hospital admissio n. He reports minimal right upper quadrant pain with deep inspiration. Otherwise, he is without major complaints. PAST MEDICAL HISTORY : 1. Stroke. 2. Hypertension. 3. Chronic obstructive pulmonary disease. 4. Myocardial infarction. 5. CAD 6. Sleep Apnea 7. Diabetes mellitus type 2. PAST SURGICAL HISTORY : 1. Coronary artery stent. 2. Cholecystectomy. 3. Back Surgery 4. Cataract Surgery 5. Brain Surgery SOCIAL HISTORY : No alcohol use. Tobacco; ALLERGIES: 1. Codeine MEDICATIONS: 1. Diltiazem 180 mg q.d. 2. Lasix (Furosemide) 20 mg q.d. 3. Insulin Detemir 15 units q.h.s. 4. Spiractonolactone 50 mg q.d. 5. Venlafaxine ER 37.5 mg q.d. 6. Temazepam 30 mg q.h.s. 7. Albuterol Q4hr prn PHYSICAL EXAMINATION: General: No acute distress Abdomen: Soft, nontender nondistended No evidence for erythema or other abnormality at the access site. ASSESSMENT: Excellent postoperative course following successful superselective chemoembolization and microwave ab lation of mass in segment 4A. PLAN: Patient will require a followup CT examination in 6-8 weeks to assess for treatment response and serv e as new baseline. TIME SPENT: 15 minutes. Patrick Lomeli MD on September 03, 2016 at 17:02 Board Certified Radiologist. This report was verified electronically.
== END 2016-09-03 16:30 | disposition home or self-care (01) ==
LOC: HROP 14:27 → HRIP 14:34 → HROP 16:30
PROVIDERS: ATTEND Radiology Diagnostic Radiology
DX: Z09 Encounter for follow-up examination after completed treatment for conditions other than malignant neoplasm (principal); R10.11 Right upper quadrant pain; I25.10 Atherosclerotic heart disease of native coronary artery without angina pectoris; I10 Essential (primary) hypertension; J44.9 Chronic obstructive pulmonary disease, unspecified; I25.2 Old myocardial infarction; E11.9 Type 2 diabetes mellitus without complications; G47.30 Sleep apnea, unspecified; Z95.5 Presence of coronary angioplasty implant and graft; Z86.73 Personal history of transient ischemic attack (TIA), and cerebral infarction without residual deficits; Z79.4 Long term (current) use of insulin
CPT/HCPCS: 99212; G0463